=== PATIENT | male | born 1945 | race Caucasian/White ===

== ENCOUNTER → 2018-01-19 08:24 | Outpatient (CLI) | payer MEDICARE, SELFPAY ==
--- NOTE | 2018-01-19 | DI.US.S_ITS ---
PROCEDURE: US ABD AORTA ANEURYSM SCREEN INDICATIONS: AAA SCREEN TECHNIQUE: Real time scanning was performed of the aorta and iliac arteries, with image documentation. COMPARISON: None. FINDINGS: Aorta: Proximal aortic diameter measures 2.0 cm. Mid-aorta measures 1.6 cm. Distal aortic diameter is 1.5 cm. Iliac arteries: Right common iliac artery measures 1.1 cm. Left common iliac artery measures 1.1 cm. IMPRESSION: No abdominal aortic aneurysm. Dictated by: Juni Duffy M.D. on 01/19/2018 at 10:16 Approved by: Juni Duffy M.D. on 01/19/2018 at 10:17
== END ==
PROVIDERS: Family Provider Family Medicine; PCP Family Medicine; Visit Provider Family Medicine
DX: Z13.6 Encounter for screening for cardiovascular disorders (principal)
CPT/HCPCS: 76706

== ENCOUNTER 2018-07-15 11:50 | Day surgery (SDC) | payer MEDICARE, SELFPAY ==
--- NOTE | 2018-07-15 | PATH_ITS ---
[facility] Accession Number: [id number] . 01 Material submitted: . sigmoid colon - SIGMOID POLYP . 02 Diagnosis: Sigmoid Colon, Polyp: Tubular adenoma. MRV/07/19/2018 . 02 Electronically signed: . Atul Odom MD, PhD, Pathologist NPI- [id number] . 01 Gross description: . SIGMOID POLYP: Received in formalin is 1 fragment(s) of blackwell, soft tissue measuring 0.5 x 0.5 x 0.5 cm which is inked, bisected and submitted entirely in 1 cassette(s) /CKI /CKI . 02 Pathologist provided ICD-10: D12.5 . 02 CPT . 732863 Performed at: 01 [facility] [address] [id number] MD Teo Resendiz MD Phone: [phone] Performed at: 02 [facility] [place] [address] [place], [place] [id number] MD Macy Hernandez MD Phone: [phone]
[2018-07-15 13:40] VITALS: BP 141/88; PULSE 76; RESP 16; TEMP 36.4; O2SAT 96; BMI 30.3
[2018-07-15] MEDS: SODIUM CHLORIDE 0.9% 1,000 ML 200 ML IV (14:10)
--- NOTE | 2018-07-15 14:27 | P.HP_ITS ---
History of Present Illness Date Patient Seen: 07/15/18 Time Patient Seen: 14:24 Chief complaint: [id number] Narrative: 72yo M for low risk screening colonoscopy. No family history, no alarm symptoms in patient. Has had screens every 10 years with no abnormal findings per patient. Patient History Medical History Snoring (Inactive) Fatigue (Resolved) Obstructive sleep apnea of adult (Chronic) Social History (Updated 05/28/18 @ 14:13 by VICKIE Alegre) marital status: details: kaleb Gonzalez, lives in [place] household members: spouse lives independently: Yes caregiver/support person: No housing: house occupational status: previously employed Smoking Status: Former smoker alcohol intake: current substance use type: does not use caffeine: Yes (10-12 cups in AM) Family & Social History Social History: household members spouse lives independently Yes caregiver/support person No Tobacco & Substance use: Smoking Status Former smoker alcohol intake current Meds Home Medications Medication Instructions Recorded Confirmed Type levothyroxine 200 mcg tablet 200 mcg PO DAILY 03/16/18 03/16/18 History Allergies Allergy/AdvReac Type Severity Reaction Status Date / Time No Known Drug Allergies Allergy Verified 05/28/18 14:23 Review of Systems Constitutional Constitutional: Reports as per HPI Exam Vital Signs (past 8 hours): - 07/15/18 13:40 Temperature 97.6 F Pulse Rate 76 Respiratory Rate 16 Blood Pressure 141/88 H Pulse Oximetry 96 Oxygen Delivery Method Room Air Narrative Exam Narrative: AAO, NAD, overweight male EOMI, MMM, no scleral icterus unlabored RA soft, nt/nd MAEW visible skin dry and intact Assessment & Plan (1) Screening for colorectal cancer: Current visit: Yes Status: Acute Assessment & Plan narrative: - low risk screening colonoscopy --> all R/B/A discussed and pt wishes to proceed
[2018-07-15] MEDS: fentaNYL 250 MCG/5 ML INJ IV (15:57)
[2018-07-15] MEDS: MIDAZOLAM 5 MG/5 ML VIAL IV (15:58)
[2018-07-15 16:51] VITALS: BP 119/54; PULSE 64; RESP 16; TEMP 37.1; O2SAT 96
--- NOTE | 2018-07-15 16:54 | PM.OP.ENDO ---
Operative Date/Time/Diagnoses Date of procedure: 07/15/18 Time of procedure: 16:42 Pre-op diagnosis: low risk screening colonscopy Post-op diagnosis: same Procedure & Clinicians Study performed: low risk screening colonoscopy Same procedure as scheduled: Yes Indications: 72yo M for low risk screening colonoscopy. Surgeon: Yeimy Hooks Procedure Notes SCOAP/Timeout: 1514 Procedure in detail: After obtaining informed consent, the patient was brought to the GI suite and placed in the left lateral decubitus position on the examination table. After placement of appropriate monitors, the patient was given incremental doses of Versed and Fentanyl until an appropriate level of sedation was achieved. A time out was held per SCOAP protocol. A digital rectal examination was performed and did not reveal any masses or obstructing lesions. The colonoscope was gently passed into the patient's anus and the entire colon navigated to the level of the cecum with difficulty, somewhat tight turns of colon. Prep was adequate. Once in the cecum, the scope was slowly withdrawn being sure to go before and beyond all mucosal folds and prominences as able to get a thorough examination. A single 3mm distal sigmoid (around 20cm) was removed with a hot snare. Other findings include a single divertiucla in the sigmoid. At the level of the rectal vault, the scope was retroflexed and the internal anal canal was examined. The scope was straightened and air aspirated from the colon. The instrument was removed from the patient's body and the procedure was concluded. The patient was allowed to awaken from sedation without difficulty and taken to the post-anesthesia care unit in good condition. Scope withdrawal time: 13 min Sedation minutes: 80 Findings: diverticulosis (single, in sigmoid) and polyp (distal sigmoid polyp, 3mm) Specimen(s): other (polyp- distal sigmoid) Complications: none Impression: 1. polyp- distal sigmoid, 3mm, sent for specimen 2. single diverticula in sigmoid colon Recommendations: Colonscopy in 5 years (pending path) and High fiber diet Follow up: as needed Disposition: PACU
[2018-07-15 17:04] VITALS: BP 122/65; PULSE 77; RESP 18; TEMP 37.1; O2SAT 96
== END 2018-07-15 17:12 | disposition home or self-care (01) ==
PROVIDERS: Family Provider Family Medicine; PCP Family Medicine; Visit Provider Surgery
PROC: 0DJD8ZZ Inspection of Lower Intestinal Tract, Via Natural or Artificial Opening Endoscopic (ICD-10-PCS; CPT 45378; principal; 2018-07-15 13:00)
DX: Z12.11 Encounter for screening for malignant neoplasm of colon (principal); K57.30 Diverticulosis of large intestine without perforation or abscess without bleeding; G47.33 Obstructive sleep apnea (adult) (pediatric); Z87.891 Personal history of nicotine dependence; D12.5 Benign neoplasm of sigmoid colon
CPT/HCPCS: 45385; 88305; 99152; 99153; J2250; J3010